=== PATIENT | male | born 1975 | race Caucasian/White ===

== ENCOUNTER 2017-01-01 13:24 | Emergency (ER) | payer SELFPAY ==
--- NOTE | 2017-01-01 14:01 | ED.PDOC ---
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 Occurred: other - 1 1/2 mos ago Pain - Lower Extremity: moderate: Right Foot Method of Injury: fell Improving Factors: nothing Worsening Factors: movement Allergies/Adverse Reactions: Allergies NO KNOWN ALLERGY Allergy (Verified 01/01/17 13:50) Home Medications: Ambulatory Orders Naproxen [Naprosyn] 500 mg PO BID #14 tab 01/01/17 Tramadol HCl 50 mg PO TID PRN #20 tab 01/01/17 Review of Systems - Review of Systems Constitutional: States: no symptoms reported EENTM: States: no symptoms reported Respiratory: States: no symptoms reported Cardiology: States: no symptoms reported Gastrointestinal/Abdominal: States: no symptoms reported Genitourinary: States: no symptoms reported Musculoskeletal: States: see HPI Skin: States: no symptoms reported Neurological: States: no symptoms reported Past Medical History (General) - Patient Medical History Hx Stroke: No Hx Congestive Heart Failure: No Hx Diabetes: No Hx MRSA: No Surgical History: no surgical history - Vaccination History Hx Influenza Vaccination: No Hx Pneumococcal Vaccination: No - Social History Hx Tobacco Use: Yes Family Medical History - Family History Father Family History: No Known Living Status: Unknown Physical Exam - Physical Exam General Appearance: Alert, Comfortable, No apparent distress Eyes, Ears, Nose, Throat: PERRL/EOMI, normal ENT inspection, TMs normal Neck: non-tender, full range of motion, supple Cardiovascular/Respiratory: regular rate, rhythm, normal peripheral pulses, normal breath sounds Gastrointestinal/Abdominal: non-tender, no organomegaly Back: normal inspection, no CVA tenderness, no vertebral tenderness Thigh/Hip: normal inspection, no evidence of injury Leg: normal inspection, no evidence of injury Knee: other - healed abrasions left knee,no swelling ,no erythema Ankle: normal inspection, non-tender, no evidence of injury Foot: soft tissue tenderness, swelling, other - right foot Neuro/Tendon: normal sensation, normal motor functions, normal tendon functions , responds to pain Mental Status: alert, oriented x 3 Skin: normal color, warm/dry Departure - Departure Clinical Impression: Foot pain, right, Knee pain, left Sprain of foot, right Qualifiers: Encounter type: initial encounter Qualified Code(s): S93.601A - Unspecified sprain of right foot, initial encounter Time of Disposition: 15:47 Disposition: Discharge to Home or Self Care Condition: Good Departure Forms: ED Discharge - Pt. Copy, Patient Portal Self Enrollment Instructions: DI for Foot Sprain Prescriptions: Naproxen [Naprosyn] 500 mg PO BID #14 tab Tramadol HCl 50 mg PO TID PRN #20 tab PRN Reason: Pain Home Medications: Ambulatory Orders Naproxen [Naprosyn] 500 mg PO BID #14 tab 01/01/17 Tramadol HCl 50 mg PO TID PRN #20 tab 01/01/17 Additional Instructions: NEED TO CALL UP DR. Fisher -orthopedist 01/04/2017;Elevate right foot 20 degrees at bedtime
[2017-01-01] MEDS ORDERED: TETANUS,DIPHTHERIA,PERTUSSIS 1 EA SYG IM ONE (14:12)
[2017-01-01 15:13] VITALS: O2SAT 97
--- NOTE | 2017-01-01 15:32 | RAD ---
EXAM DESCRIPTION: Foot,Right 3 Views CLINICAL HISTORY: 41 years Male ,injured left knee two months ago with increased weight and pressure on the right foot, right foot is swollen and red, anterior pain and arch pain COMPARISON: None. TECHNIQUE: Three view FINDINGS: No acute fractures or dislocations are identified. No osseous destructive lesions. IMPRESSION: No acute fracture is identified. Electronically signed by: Alison Bassett 01/01/2017 3:33 PM CDT
--- NOTE | 2017-01-01 15:33 | RAD ---
EXAM DESCRIPTION: Ankle,Right 2 Views CLINICAL HISTORY: 41 years Male injured left knee two months ago with increased weight and pressure on the right foot, right foot is swollen and red, anterior pain and arch pain COMPARISON: None. TECHNIQUE: Two view FINDINGS: No acute fractures or dislocations are identified. No osseous destructive lesions. IMPRESSION: No acute fracture is identified. Electronically signed by: Alison Bassett 01/01/2017 3:33 PM CDT
--- NOTE | 2017-01-01 15:35 | RAD ---
EXAM DESCRIPTION: Knee,Left 2 or More Views CLINICAL HISTORY: 41 years Male injured left knee two months ago, pain COMPARISON: None. TECHNIQUE: Two view FINDINGS: No acute fractures or dislocations are identified. No osseous destructive lesions. IMPRESSION: No acute fracture is identified. Electronically signed by: Alison Bassett 01/01/2017 3:35 PM CDT
[2017-01-01 15:57] VITALS: BP 121/64; TEMP 98
== END 2017-01-01 15:57 | disposition home or self-care (01) ==
LOC: ER 13:24
DX: S93.601A Unspecified sprain of right foot, initial encounter (principal); M25.562 Pain in left knee; Z87.891 Personal history of nicotine dependence; Z23 Encounter for immunization; W55.22XA Struck by cow, initial encounter; W17.89XA Other fall from one level to another, initial encounter; Y92.65 Oil rig as the place of occurrence of the external cause; Y99.0 Civilian activity done for income or pay